=== PATIENT | female | born 1975 | race African-American/Black ===

== ENCOUNTER 2023-09-28 09:45 | Day surgery (SDC) | payer BC ==
[2023-09-25 13:33] VITALS: BMI 44.0
[2023-09-28] MEDS ORDERED: oxyCODONE HCL 5 MG TABLET PO PRN (12:03)
[2023-09-28] MEDS ORDERED: LACTATED RINGERS SOLUTION 1,000 ML IV SCH (12:15)
[2023-09-28] MEDS ORDERED: BUPIVACAINE HCL/PF 2.5 MG/ML - 30 ML VIAL IJ ONE (12:17)
[2023-09-28] MEDS ORDERED: MIDAZOLAM HCL 2 MG/2 ML SINGLE DOSE VIAL ONE (12:23)
[2023-09-28] MEDS ORDERED: PROPOFOL 20 ML ONE ×2 (12:31→12:41)
[2023-09-28] MEDS ORDERED: SUCCINYLCHOLINE CHLORIDE 200 MG/10 ML SYRINGE ONE (12:41)
[2023-09-28] MEDS ORDERED: FENTANYL CITRATE/PF 50 MCG/ML VIAL ONE ×4 (13:22→13:57)
[2023-09-28] MEDS ORDERED: ACETAMINOPHEN INJECTION 100 ML IVPB ONE (13:23)
[2023-09-28] MEDS ORDERED: ACETAMINOPHEN 1000 MG/100 ML BAG IVPB ONE (13:26)
[2023-09-28] MEDS: ONDANSETRON 4 MG/2 ML VIAL IVPUSH PRN ×2 (13:28→15:00)
[2023-09-28] MEDS ORDERED: oxyCODONE HCL 5 MG TABLET ONE (14:06)
[2023-09-28] MEDS ORDERED: ONDANSETRON 4 MG/2 ML VIAL ONE (14:54)
[2023-09-28 15:57] VITALS: TEMP 97.6
[2023-09-28 16:08] VITALS: BP 145/72; PULSE 82; RESP 20
== END 2023-09-28 15:35 | disposition home or self-care (01) ==
LOC: FASU 09:45
PROVIDERS: ATTEND Orthopaedic Surgery
PROC: 0SBC4ZZ Excision of Right Knee Joint, Percutaneous Endoscopic Approach (ICD-10-PCS; principal; 2023-09-28 12:54)
DX: S83.241A Other tear of medial meniscus, current injury, right knee, initial encounter (principal); M65.861 Other synovitis and tenosynovitis, right lower leg; S83.8X1A Sprain of other specified parts of right knee, initial encounter; X58.XXXA Exposure to other specified factors, initial encounter; Y92.9 Unspecified place or not applicable; Y93.9 Activity, unspecified
CPT/HCPCS: 81025; 94760